=== PATIENT | male | born 1965 | race Caucasian/White ===

== ENCOUNTER 2019-08-29 | Outpatient (CLI) | payer MEDICARE, MEDICAID | END 2019-08-29 14:51 | disposition home or self-care (01) | DX: N18.3 Chronic kidney disease, stage 3 (moderate) (principal); N28.1 Cyst of kidney, acquired ==

== ENCOUNTER 2021-01-07 12:13 | Outpatient (CLI) | payer MEDICARE, MEDICAID ==
[2021-01-07 14:35] LABS: #Basophils 0.1 10x3/uL (0.0-0.2); #Eosinphils 0.3 10x3/uL (0.0-0.5); #Monocytes 0.8 10x3/uL (0.0-1.1); #Neutrophils 5.2 10x3/uL (1.5-8.4); %Basophils 1.2 % (0.0-2.0); %Eosinophils 2.9 % (0.0-6.0); %Lymphocytes 30.3 % (18.0-47.0); %Monocytes 8.2 % (0.0-10.0); Hemoglobin 14.8 g/dL (13.5-17.5); Mean Corpuscular HGB CONC 32.1 g/dL (32.0-36.0); Mean Corpuscular Volume 87.1 fl (81.2-95.1); Mean Platelet Volume 10.6 fl (7.4-10.4); Platelet Count 235 10x3/uL (150-450); RBC Distribution Width 15.9 % (11.5-14.5); Red Blood Cell (RBC) Count 5.29 10x6/uL (4.32-5.72); White Blood Cell (WBC) Count 9.2 10x3/uL (3.5-10.5)
[2021-01-07 14:36] LABS: Anion Gap 15 mmol/L (10-20); BUN (Urea Nitrogen) 14 mg/dL (8.4-25.7); Calc. Creatinine Clearance 0 mL/min (70-130); Calcium 9.6 mg/dL (7.8-10.44); Carbon Dioxide 23 mmol/L (22-29); Chloride 107 mmol/L (98-107); Glucose 68 mg/dL (70-105); Potassium 4.3 mmol/L (3.5-5.1); Sodium 141 mmol/L (136-145)
[2021-01-07 17:22] LABS: SARS-CoV-2 NAA Rapid Test DETECTED (NotDetected)
== END 2021-01-07 12:14 | disposition home or self-care (01) ==
LOC: LABBT 12:13
PROVIDERS: ATTEND Specialist
DX: Z01.818 Encounter for other preprocedural examination (principal); U07.1 COVID-19; K42.9 Umbilical hernia without obstruction or gangrene
CPT/HCPCS: 80048; 85025; U0002; 93005; 93010

== ENCOUNTER 2021-02-25 08:16 | Outpatient (CLI) | payer MEDICARE, MEDICAID ==
[2021-02-25 10:15] LABS: #Basophils 0.1 10x3/uL (0.0-0.2); #Eosinphils 0.3 10x3/uL (0.0-0.5); #Monocytes 0.8 10x3/uL (0.0-1.1); #Neutrophils 7.9 10x3/uL (1.5-8.4); %Basophils 0.9 % (0.0-2.0); %Eosinophils 2.2 % (0.0-6.0); %Monocytes 6.6 % (0.0-10.0); %Neutrophils 68.9 % (40.0-75.0); Hemoglobin 15.9 g/dL (13.5-17.5); Mean Corpuscular HGB CONC 32.3 g/dL (32.0-36.0); Mean Corpuscular Hemoglobin 27.4 pg (27.0-33.0); Mean Platelet Volume 10.6 fl (7.4-10.4); Platelet Count 254 10x3/uL (150-450); RBC Distribution Width 14.3 % (11.5-14.5); White Blood Cell (WBC) Count 11.5 10x3/uL (3.5-10.5)
[2021-02-25 10:31] LABS: Anion Gap 15 mmol/L (10-20); BUN (Urea Nitrogen) 21 mg/dL (8.4-25.7); Calc. Creatinine Clearance 0 mL/min (70-130); Calcium 9.8 mg/dL (7.8-10.44); Carbon Dioxide 19 mmol/L (22-29); Chloride 109 mmol/L (98-107); Glucose 107 mg/dL (70-105); Potassium 4.9 mmol/L (3.5-5.1); Sodium 138 mmol/L (136-145)
== END 2021-02-25 08:17 | disposition home or self-care (01) ==
LOC: LABBT 08:16
PROVIDERS: ATTEND Specialist
DX: Z01.812 Encounter for preprocedural laboratory examination (principal); K42.9 Umbilical hernia without obstruction or gangrene
CPT/HCPCS: 80048; 85025

== ENCOUNTER 2021-02-26 08:17 | Day surgery (SDC) | payer MEDICARE, MEDICAID ==
[2021-02-20 14:39] VITALS: BMI 32.1
[2021-02-26] MEDS ORDERED: Ketorolac Tromethamine 30 MG/ML VIAL ONE (08:40)
[2021-02-26] MEDS ORDERED: Acetaminophen 500 MG TAB ONE (08:40)
[2021-02-26] MEDS ORDERED: Bupivacaine 0.25% HCL 30 ML VIAL ONE (09:20)
[2021-02-26] MEDS ORDERED: Lidocaine 1% w/Epinephrine 1:100K 20 ML VIAL ONE (09:20)
[2021-02-26] MEDS ORDERED: Midazolam HCl 2 mg/2 ml Vial ONE (09:31)
[2021-02-26] MEDS ORDERED: Fentanyl 100 MCG/2 ML VIAL ONE ×4 (09:31→11:49)
[2021-02-26] MEDS ORDERED: Lidocaine 1% PF 5 ML VIAL ONE (09:35)
[2021-02-26] MEDS ORDERED: Ondansetron PF 4 MG/2 ML Vial ONE (09:35)
[2021-02-26] MEDS ORDERED: ePHEDrine 50 MG/ML VIAL ONE (09:35)
[2021-02-26] MEDS ORDERED: PROPOFOL 200 MG/20 ML VIAL ONE (09:35)
[2021-02-26] MEDS ORDERED: HYDROcodone/Acetaminophen 5/325 mg Tablet ONE (12:44)
== END 2021-02-26 14:00 | disposition home or self-care (01) ==
LOC: SDC 08:17
PROVIDERS: ATTEND Specialist
PROC: 0WUF0JZ Supplement Abdominal Wall with Synthetic Substitute, Open Approach (ICD-10-PCS; principal; 2021-02-26)
DX: K42.9 Umbilical hernia without obstruction or gangrene (principal); I10 Essential (primary) hypertension; F17.210 Nicotine dependence, cigarettes, uncomplicated; Z79.899 Other long term (current) drug therapy; Z88.8 Allergy status to other drugs, medicaments and biological substances
CPT/HCPCS: 49585; C1889; J0690; J1885; J2250; J2405; J2704; J3010; J3490; S0020

== ENCOUNTER 2022-03-19 08:34 | Inpatient (IN) | payer OTHER, MEDICAID ==
[2022-03-19 09:08] LABS: #Basophils 0.1 thou/uL (0.0-0.2); #Eosinphils 0.1 thou/uL (0.0-0.7); #Lymphocytes 2.3 thou/uL (1.20-3.40); #Monocytes 0.7 thou/uL (0.11-0.59); %Basophils 0.6 % (0.0-1.0); %Eosinophils 1.1 % (0.0-10.0); %Lymphocytes 18.9 % (21.0-51.0); %Monocytes 6.1 % (0.0-10.0); %Neutrophils 73.4 % (42.0-75.0); Hemoglobin 15.3 g/dL (14.0-18.0); Mean Corpuscular HGB CONC 31.9 g/dL (32.0-36.0); Mean Corpuscular Hemoglobin 27.9 pg (27.0-31.0); Mean Corpuscular Volume 87.5 fl (78.0-98.0); Mean Platelet Volume 8.5 fL (7.4-10.4); Platelet Count 206 10x3/uL (130-400); RBC Distribution Width 13.8 % (11.5-14.5); Red Blood Cell (RBC) Count 5.48 mill/uL (4.70-6.10); White Blood Cell (WBC) Count 12.2 10x3/uL (4.8-10.8)
[2022-03-19 09:29] LABS: ALT (SGPT) 22 U/L (8-55); AST (SGOT) 26 U/L (5-34); Albumin 4.2 g/dL (3.5-5.0); Alkaline Phosphatase 73 U/L (40-110); Anion Gap 14 mmol/L (10-20); BUN (Urea Nitrogen) 5 mg/dL (8.4-25.7); Bilirubin, Total 0.5 mg/dL (0.2-1.2); Calc. Creatinine Clearance 0 mL/min (70-130); Calcium 9.9 mg/dL (7.8-10.44); Carbon Dioxide 28 mmol/L (22-29); Chloride 99 mmol/L (98-107); Estimated GFR 53; Globulin 3.9 g/dL (2.4-3.5); Glucose 132 mg/dL (70-105); Lipase 43 U/L (8-78); Potassium 3.3 mmol/L (3.5-5.1); Protein, Total 8.1 g/dL (6.0-8.3); Sodium 138 mmol/L (136-145)
[2022-03-19] MEDS ORDERED: Nitroglycerin 0.4 MG TAB 1 EACH ONE ×2 (09:39→10:00)
[2022-03-19] MEDS ORDERED: Aspirin Chewable 81 MG TAB ONE (09:39)
[2022-03-19 11:03] LABS: SARS-CoV-2 NAA Rapid Test Not Detected (NotDetected)
[2022-03-19 12:19] LABS: Troponin I Less than 0.010 ng/mL (< 0.028)
[2022-03-19] MEDS ORDERED: Morphine 4 MG/ML VIAL SLOW IVP SCH (12:30)
[2022-03-19] MEDS ORDERED: Acetaminophen 325 MG TAB PO PRN ×2 (12:46→17:12)
[2022-03-19] MEDS ORDERED: Ondansetron ODT 4 MG TAB PO PRN (12:46)
[2022-03-19] MEDS ORDERED: Ondansetron PF 4 MG/2 ML Vial IVP PRN (12:46)
[2022-03-19] MEDS ORDERED: NIFEdipine XL 30 MG TAB PO SCH (13:45)
[2022-03-19] MEDS ORDERED: Sodium Bicarbonate 2.5 MEQ/5 ML VIAL ONE (13:53)
[2022-03-19] MEDS ORDERED: Morphine 4 MG/ML VIAL ONE (13:53)
[2022-03-19 13:58] LABS: Hemoglobin A1c 5.4 % (4.0-6.0)
[2022-03-19 14:15] LABS: Cardiac Risk 5.6 (Less than 4.5)
[2022-03-19 16:05] LABS: Troponin I Less than 0.010 ng/mL (< 0.028)
[2022-03-19] MEDS ORDERED: HYDROcodone/Acetaminophen 5/325 mg Tablet PO PRN (16:17)
[2022-03-19] MEDS ORDERED: Potassium Chloride 20 MEQ TAB PO SCH (17:15)
[2022-03-19] MEDS ORDERED: Potassium Chloride 20 MEQ TAB ONE (18:15)
[2022-03-19] MEDS: Carvedilol 25 MG TAB PO SCH (18:17)
[2022-03-19 19:47] VITALS: BMI 30.2
[2022-03-19] MEDS ORDERED: Tamsulosin HCl 0.4 MG CAP PO SCH (21:00)
[2022-03-19] MEDS ORDERED: Atorvastatin Calcium 40 MG TAB PO SCH (21:00)
[2022-03-20 05:13] LABS: #Basophils 0.1 thou/uL (0.0-0.2); #Eosinphils 0.3 thou/uL (0.0-0.7); #Lymphocytes 2.6 thou/uL (1.20-3.40); #Monocytes 0.6 thou/uL (0.11-0.59); #Neutrophils 5.6 thou/uL (1.40-6.50); %Basophils 0.7 % (0.0-1.0); %Eosinophils 3.2 % (0.0-10.0); %Lymphocytes 28.4 % (21.0-51.0); %Monocytes 6.9 % (0.0-10.0); %Neutrophils 60.8 % (42.0-75.0); Hemoglobin 14.6 g/dL (14.0-18.0); Mean Corpuscular HGB CONC 32.4 g/dL (32.0-36.0); Mean Corpuscular Hemoglobin 28.6 pg (27.0-31.0); Mean Corpuscular Volume 88.3 fl (78.0-98.0); Mean Platelet Volume 8.3 fL (7.4-10.4); Platelet Count 184 10x3/uL (130-400); RBC Distribution Width 13.8 % (11.5-14.5); Red Blood Cell (RBC) Count 5.11 mill/uL (4.70-6.10); White Blood Cell (WBC) Count 9.2 10x3/uL (4.8-10.8)
[2022-03-20 05:30] LABS: ALT (SGPT) 23 U/L (8-55); AST (SGOT) 28 U/L (5-34); Albumin 3.6 g/dL (3.5-5.0); Alkaline Phosphatase 68 U/L (40-110); Anion Gap 13 mmol/L (10-20); BUN (Urea Nitrogen) 6 mg/dL (8.4-25.7); Bilirubin, Total 0.7 mg/dL (0.2-1.2); Calc. Creatinine Clearance 75 mL/min (70-130); Calcium 8.9 mg/dL (7.8-10.44); Carbon Dioxide 25 mmol/L (22-29); Chloride 103 mmol/L (98-107); Estimated GFR 61; Globulin 3.5 g/dL (2.4-3.5); Glucose 108 mg/dL (70-105); Potassium 3.4 mmol/L (3.5-5.1); Protein, Total 7.1 g/dL (6.0-8.3); Sodium 138 mmol/L (136-145)
[2022-03-20] MEDS ORDERED: metFORMIN 500 MG TAB PO SCH (08:00)
[2022-03-20] MEDS ORDERED: Tamsulosin HCl 0.4 MG CAP PO SCH (09:00)
[2022-03-20] MEDS ORDERED: NIFEdipine XL 30 MG TAB PO SCH (09:00)
[2022-03-20] MEDS ORDERED: Escitalopram Oxalate 10 mg Tablet PO SCH (09:00)
[2022-03-20] MEDS ORDERED: Loratadine 10 MG TAB PO SCH (09:00)
[2022-03-20] MEDS ORDERED: Potassium Chloride 20 MEQ TAB PO SCH (11:45)
[2022-03-20] MEDS ORDERED: ADENOSINE 60 MG/20 ML VIAL ONE (12:07)
[2022-03-20] MEDS: Carvedilol 25 MG TAB PO SCH (13:31)
[2022-03-20 13:34] VITALS: BP 123/73; TEMP 97.3
== END 2022-03-20 14:13 | disposition home or self-care (01) | DRG 445 ==
LOC: ERS 08:34 → ERHOLD 11:15 → 2NO 19:31
PROVIDERS: ADMIT Family Medicine; ATTEND Family Medicine
DX: K80.00 Calculus of gallbladder with acute cholecystitis without obstruction (principal); N17.9 Acute kidney failure, unspecified; I16.0 Hypertensive urgency; R07.89 Other chest pain; Z20.822 Contact with and (suspected) exposure to COVID-19; N18.31 Chronic kidney disease, stage 3a; I12.9 Hypertensive chronic kidney disease with stage 1 through stage 4 chronic kidney disease, or unspecified chronic kidney disease; I45.10 Unspecified right bundle-branch block; E87.6 Hypokalemia; F41.1 Generalized anxiety disorder; F32.9 Major depressive disorder, single episode, unspecified; F17.210 Nicotine dependence, cigarettes, uncomplicated; Z60.2 Problems related to living alone; N20.0 Calculus of kidney; Z79.899 Other long term (current) drug therapy; Z79.84 Long term (current) use of oral hypoglycemic drugs; Z88.8 Allergy status to other drugs, medicaments and biological substances; Z80.0 Family history of malignant neoplasm of digestive organs; Z82.3 Family history of stroke; Z82.49 Family history of ischemic heart disease and other diseases of the circulatory system
CPT/HCPCS: 36415; 71045; 74176; 76705; 78452; 80053; 80061; 83036; 83690; 83880; 84443; 84484; 85025; 93005; 93017; 93306; A9500; J2270; U0002

== ENCOUNTER 2022-10-05 12:17 | Observation (INO) | payer OTHER, MEDICAID ==
[~2022-10-05 12:17] MED LIST: Iopamidol-370 76% 500 ML MDV (1 ML CHARGE) ONE
[2022-10-05] MEDS ORDERED: Morphine 4 MG/ML VIAL ONE (12:55)
[2022-10-05] MEDS ORDERED: Ondansetron PF 4 MG/2 ML Vial ONE (12:55)
[2022-10-05 13:04] LABS: #Basophils 0.1 thou/uL (0.0-0.2); #Eosinphils 0.1 thou/uL (0.0-0.7); #Monocytes 0.5 thou/uL (0.11-0.59); #Neutrophils 9.8 thou/uL (1.40-6.50); %Basophils 0.5 % (0.0-1.0); %Eosinophils 0.7 % (0.0-10.0); %Lymphocytes 17.8 % (21.0-51.0); %Monocytes 4.2 % (0.0-10.0); %Neutrophils 76.3 % (42.0-75.0); Hemoglobin 14.3 g/dL (14.0-18.0); Mean Corpuscular HGB CONC 32.3 g/dL (32.0-36.0); Mean Corpuscular Volume 86.7 fl (78.0-98.0); Mean Platelet Volume 10.5 fL (7.4-10.4); Platelet Count 199 10x3/uL (130-400); RBC Distribution Width 15.7 % (11.5-14.5); Red Blood Cell (RBC) Count 5.11 mill/uL (4.70-6.10); White Blood Cell (WBC) Count 12.9 10x3/uL (4.8-10.8)
[2022-10-05 13:23] LABS: ALT (SGPT) 27 U/L (8-55); AST (SGOT) 30 U/L (5-34); Albumin 3.8 g/dL (3.5-5.0); Alkaline Phosphatase 71 U/L (40-110); Anion Gap 15 mmol/L (10-20); BUN (Urea Nitrogen) 12 mg/dL (8.4-25.7); Bilirubin, Total 0.4 mg/dL (0.2-1.2); Calc. Creatinine Clearance 0 mL/min (70-130); Calcium 9.3 mg/dL (7.8-10.44); Carbon Dioxide 21 mmol/L (22-29); Chloride 102 mmol/L (98-107); Estimated GFR 48; Globulin 3.2 g/dL (2.4-3.5); Glucose 145 mg/dL (70-105); Lipase 44 U/L (8-78); Potassium 3.9 mmol/L (3.5-5.1); Sodium 134 mmol/L (136-145)
[2022-10-05] MEDS ORDERED: Ondansetron ODT 4 MG TAB ONE (16:26)
[2022-10-05] MEDS ORDERED: fentaNYL 50 mcg/mL 1 mL Vial ONE (16:26)
[2022-10-05] MEDS ORDERED: Ondansetron ODT 4 MG TAB PO PRN (17:01)
[2022-10-05] MEDS ORDERED: Acetaminophen 325 MG TAB PO PRN (17:01)
[2022-10-05 17:53] LABS: Troponin I Less than 0.010 ng/mL (< 0.028)
[2022-10-05 19:06] VITALS: BMI 30.9
[2022-10-05] MEDS ORDERED: Aluminum & Magnesium Hydroxide 30 ML, Donnatal Elixir 32.4 MG PO SCH (19:30)
[2022-10-05] MEDS: Carvedilol 25 MG TAB PO SCH (19:57)
[2022-10-05 20:51] LABS: Troponin I Less than 0.010 ng/mL (< 0.028)
[2022-10-05] MEDS ORDERED: Diclofenac 1% 100 GM GEL TP SCH (22:00)
[2022-10-06 05:43] LABS: #Basophils 0.1 thou/uL (0.0-0.2); #Eosinphils 0.3 thou/uL (0.0-0.7); #Monocytes 0.8 thou/uL (0.11-0.59); #Neutrophils 6.3 thou/uL (1.40-6.50); %Basophils 0.7 % (0.0-1.0); %Eosinophils 2.8 % (0.0-10.0); %Lymphocytes 28.4 % (21.0-51.0); %Monocytes 7.2 % (0.0-10.0); %Neutrophils 60.4 % (42.0-75.0); Hemoglobin 14.3 g/dL (14.0-18.0); Mean Corpuscular HGB CONC 31.4 g/dL (32.0-36.0); Mean Corpuscular Hemoglobin 27.7 pg (27.0-31.0); Mean Platelet Volume 10.3 fL (7.4-10.4); Platelet Count 183 10x3/uL (130-400); RBC Distribution Width 16.1 % (11.5-14.5); Red Blood Cell (RBC) Count 5.17 mill/uL (4.70-6.10); White Blood Cell (WBC) Count 10.4 10x3/uL (4.8-10.8)
[2022-10-06 06:11] LABS: Troponin I Less than 0.010 ng/mL (< 0.028)
[2022-10-06 06:16] LABS: Anion Gap 14 mmol/L (10-20); BUN (Urea Nitrogen) 11 mg/dL (8.4-25.7); Calc. Creatinine Clearance 66 mL/min (70-130); Carbon Dioxide 25 mmol/L (22-29); Chloride 106 mmol/L (98-107); Estimated GFR 52; Potassium 4.5 mmol/L (3.5-5.1); Sodium 140 mmol/L (136-145)
[2022-10-06 06:17] LABS: ALT (SGPT) 23 U/L (8-55); AST (SGOT) 24 U/L (5-34); Albumin 3.6 g/dL (3.5-5.0); Alkaline Phosphatase 67 U/L (40-110); Bilirubin, Total 0.4 mg/dL (0.2-1.2); Calcium 9.5 mg/dL (7.8-10.44); Globulin 3.4 g/dL (2.4-3.5); Glucose 97 mg/dL (70-105)
[2022-10-06] MEDS ORDERED: Escitalopram Oxalate 10 mg Tablet PO SCH (09:00)
[2022-10-06] MEDS ORDERED: Diclofenac 1% 100 GM GEL TP SCH (09:00)
[2022-10-06] MEDS ORDERED: Tamsulosin HCl 0.4 MG CAP PO SCH (09:00)
[2022-10-06] MEDS: Carvedilol 25 MG TAB PO SCH (09:36)
[2022-10-06 12:25] VITALS: BP 142/76; TEMP 97.6
== END 2022-10-06 13:44 | disposition home or self-care (01) ==
LOC: ERS 12:17 → 2SW 16:02
PROVIDERS: ADMIT Student in an Organized Health Care Education/Training Program; ATTEND Student in an Organized Health Care Education/Training Program
DX: R07.89 Other chest pain (principal); I12.9 Hypertensive chronic kidney disease with stage 1 through stage 4 chronic kidney disease, or unspecified chronic kidney disease; N18.31 Chronic kidney disease, stage 3a; N40.0 Benign prostatic hyperplasia without lower urinary tract symptoms; E78.5 Hyperlipidemia, unspecified; F17.210 Nicotine dependence, cigarettes, uncomplicated; Z79.899 Other long term (current) drug therapy; Z88.8 Allergy status to other drugs, medicaments and biological substances
CPT/HCPCS: 71045; 71275; 80053 ×2; 83690; 83880; 84484 ×3; 85025 ×2; 85379; 87338; 93005; 96372; 96374; 96375; 99285; G0378 ×3; J3010; 36415; 82274; J1650; J2270; J2405; Q0162; Q9967

== ENCOUNTER 2022-11-13 10:16 | Observation (INO) | payer OTHER, MEDICAID ==
[2022-11-13] MEDS ORDERED: Iopamidol-370 76% 500 ML MDV (1 ML CHARGE) ONE (10:38)
[2022-11-13] MEDS ORDERED: Aspirin 325 MG TAB ONE (10:46)
[2022-11-13] MEDS ORDERED: hydrALAZINE 20 MG/ML VIAL ONE (10:46)
[2022-11-13] MEDS ORDERED: Nitroglycerin 2% Ointment 1 INCH/1 GM Packet ONE (10:46)
[2022-11-13 11:08] LABS: #Basophils 0.1 thou/uL (0.0-0.2); #Monocytes 0.9 thou/uL (0.11-0.59); #Neutrophils 12.1 thou/uL (1.40-6.50); %Basophils 0.4 % (0.0-1.0); %Eosinophils 0.2 % (0.0-10.0); %Lymphocytes 15.9 % (21.0-51.0); %Monocytes 5.6 % (0.0-10.0); %Neutrophils 77.6 % (42.0-75.0); Hematocrit 47.1 % (42.0-52.0); Hemoglobin 15.3 g/dL (14.0-18.0); Mean Corpuscular HGB CONC 32.5 g/dL (32.0-36.0); Mean Corpuscular Hemoglobin 27.5 pg (27.0-31.0); Mean Corpuscular Volume 84.7 fl (78.0-98.0); Mean Platelet Volume 10.6 fL (7.4-10.4); Platelet Count 228 10x3/uL (130-400); RBC Distribution Width 15.3 % (11.5-14.5); Red Blood Cell (RBC) Count 5.56 mill/uL (4.70-6.10); White Blood Cell (WBC) Count 15.6 10x3/uL (4.8-10.8)
[2022-11-13] MEDS ORDERED: Aspirin Chewable 81 MG TAB ONE (11:21)
[2022-11-13 11:32] LABS: ALT (SGPT) 22 U/L (8-55); AST (SGOT) 20 U/L (5-34); Alkaline Phosphatase 72 U/L (40-110); Anion Gap 14 mmol/L (10-20); BUN (Urea Nitrogen) 16 mg/dL (8.4-25.7); Bilirubin, Total 0.4 mg/dL (0.2-1.2); Calc. Creatinine Clearance 0 mL/min (70-130); Calcium 9.2 mg/dL (7.8-10.44); Carbon Dioxide 22 mmol/L (22-29); Chloride 101 mmol/L (98-107); Estimated GFR 39; Globulin 3.8 g/dL (2.4-3.5); Glucose 175 mg/dL (70-105); Potassium 3.4 mmol/L (3.5-5.1); Protein, Total 7.8 g/dL (6.0-8.3); Sodium 134 mmol/L (136-145)
[2022-11-13 11:34] LABS: Troponin I Less than 0.010 ng/mL (< 0.028)
[2022-11-13] MEDS ORDERED: Ketorolac Tromethamine 30 MG/ML VIAL ONE (12:26)
[2022-11-13] MEDS ORDERED: Dextrose 5% in Water 1,000 ML IV PRN (12:57)
[2022-11-13] MEDS ORDERED: Dextrose 50% Abboject 50 ML SYRINGE SLOW IVP PRN (12:57)
[2022-11-13] MEDS ORDERED: Glucagon 1 MG/ML KIT IM PRN (12:57)
[2022-11-13] MEDS ORDERED: HumaLOG 300 UNITS/3 ML VIAL SC PRN (13:00)
[2022-11-13] MEDS ORDERED: hydrALAZINE 20 MG/ML VIAL SLOW IVP PRN (13:53)
[2022-11-13] MEDS: Heparin 5,000 UNITS/ML VIAL SC SCH ×2 (14:05→20:08)
[2022-11-13 14:29] LABS: Troponin I Less than 0.010 ng/mL (< 0.028)
[2022-11-13 15:10] LABS: Hemoglobin A1c 5.7 % (4.0-6.0)
[2022-11-13 15:25] LABS: Cardiac Risk 6.2 (Less than 4.5)
[2022-11-13 17:27] VITALS: BMI 31.1
[2022-11-13] MEDS: Acetaminophen 500 MG TAB PO SCH (17:52)
[2022-11-13 18:34] LABS: Troponin I Less than 0.010 ng/mL (< 0.028)
[2022-11-13] MEDS: Carvedilol 25 MG TAB PO SCH (20:08)
[2022-11-13] MEDS ORDERED: Latanoprost 0.005% Ophth Soln 2.5 ml Bottle EA EYE SCH (21:00)
[2022-11-13] MEDS ORDERED: Atorvastatin Calcium 40 MG TAB PO SCH (21:00)
[2022-11-14 04:54] LABS: #Basophils 0.1 thou/uL (0.0-0.2); #Eosinphils 0.3 thou/uL (0.0-0.7); #Neutrophils 6.2 thou/uL (1.40-6.50); %Basophils 0.5 % (0.0-1.0); %Eosinophils 2.8 % (0.0-10.0); %Lymphocytes 26.1 % (21.0-51.0); %Monocytes 9.5 % (0.0-10.0); %Neutrophils 60.7 % (42.0-75.0); Hematocrit 42.2 % (42.0-52.0); Hemoglobin 13.7 g/dL (14.0-18.0); Mean Corpuscular HGB CONC 32.5 g/dL (32.0-36.0); Mean Corpuscular Volume 86.3 fl (78.0-98.0); Mean Platelet Volume 10.5 fL (7.4-10.4); Platelet Count 186 10x3/uL (130-400); RBC Distribution Width 15.3 % (11.5-14.5); Red Blood Cell (RBC) Count 4.89 mill/uL (4.70-6.10); White Blood Cell (WBC) Count 10.2 10x3/uL (4.8-10.8)
[2022-11-14] MEDS: Acetaminophen 500 MG TAB PO SCH (05:13)
[2022-11-14 05:19] LABS: ALT (SGPT) 15 U/L (8-55); AST (SGOT) 17 U/L (5-34); Albumin 3.3 g/dL (3.5-5.0); Alkaline Phosphatase 59 U/L (40-110); Anion Gap 13 mmol/L (10-20); BUN (Urea Nitrogen) 18 mg/dL (8.4-25.7); Bilirubin, Total 0.4 mg/dL (0.2-1.2); Calc. Creatinine Clearance 58 mL/min (70-130); Calcium 8.4 mg/dL (7.8-10.44); Carbon Dioxide 24 mmol/L (22-29); Chloride 101 mmol/L (98-107); Estimated GFR 44; Globulin 3.3 g/dL (2.4-3.5); Glucose 137 mg/dL (70-105); Potassium 3.4 mmol/L (3.5-5.1); Protein, Total 6.6 g/dL (6.0-8.3); Sodium 135 mmol/L (136-145)
[2022-11-14] MEDS: Carvedilol 25 MG TAB PO SCH (08:45)
[2022-11-14] MEDS: Heparin 5,000 UNITS/ML VIAL SC SCH (08:46)
[2022-11-14] MEDS ORDERED: Tamsulosin HCl 0.4 MG CAP PO SCH (09:00)
[2022-11-14] MEDS ORDERED: Fish Oil 1,000 MG CAP PO SCH (09:00)
[2022-11-14] MEDS ORDERED: Escitalopram Oxalate 10 mg Tablet PO SCH (09:00)
[2022-11-14 11:41] VITALS: BP 137/78; TEMP 98.6
== END 2022-11-14 12:20 | disposition home or self-care (01) ==
LOC: ERS 10:16 → ERHOLD 12:45 → 2SW 16:26
PROVIDERS: ADMIT Student in an Organized Health Care Education/Training Program; ATTEND Student in an Organized Health Care Education/Training Program
DX: I20.9 Angina pectoris, unspecified (principal); R07.2 Precordial pain; N40.0 Benign prostatic hyperplasia without lower urinary tract symptoms; N18.30 Chronic kidney disease, stage 3 unspecified; I12.9 Hypertensive chronic kidney disease with stage 1 through stage 4 chronic kidney disease, or unspecified chronic kidney disease; E78.5 Hyperlipidemia, unspecified; E11.22 Type 2 diabetes mellitus with diabetic chronic kidney disease; F32.A Depression, unspecified; Z98.890 Other specified postprocedural states; Z98.49 Cataract extraction status, unspecified eye; F17.210 Nicotine dependence, cigarettes, uncomplicated; Z88.8 Allergy status to other drugs, medicaments and biological substances; Z79.899 Other long term (current) drug therapy; Z20.822 Contact with and (suspected) exposure to COVID-19
CPT/HCPCS: 71045; 71275; 80053; 80061; 82962 ×2; 83036; 83880; 84439; 84484 ×2; 85025; 85379; 87635; 93005; 96372 ×3; 96374; 96375; 99285; G0378 ×3; J0360; 36415; 36416; 84443; J1644; J1885; Q9967

== ENCOUNTER 2023-02-07 08:41 | Emergency (ER) | payer OTHER, MEDICAID ==
[2023-02-07 09:21] LABS: #Basophils 0.1 thou/uL (0.0-0.2); #Monocytes 0.8 thou/uL (0.11-0.59); #Neutrophils 10.6 thou/uL (1.40-6.50); %Basophils 0.4 % (0.0-1.0); %Eosinophils 0.2 % (0.0-10.0); %Lymphocytes 10.9 % (21.0-51.0); %Monocytes 6.5 % (0.0-10.0); %Neutrophils 81.2 % (42.0-75.0); Hematocrit 42.3 % (42.0-52.0); Hemoglobin 13.5 g/dL (14.0-18.0); Mean Corpuscular HGB CONC 31.9 g/dL (32.0-36.0); Mean Corpuscular Hemoglobin 26.1 pg (27.0-31.0); Mean Corpuscular Volume 81.8 fl (78.0-98.0); Mean Platelet Volume 10.3 fL (7.4-10.4); Platelet Count 260 10x3/uL (130-400); Red Blood Cell (RBC) Count 5.17 mill/uL (4.70-6.10)
[2023-02-07] MEDS ORDERED: Ketorolac Tromethamine 30 MG/ML VIAL ONE (09:38)
[2023-02-07] MEDS ORDERED: Aspirin Chewable 81 MG TAB ONE (09:38)
[2023-02-07 09:40] LABS: ALT (SGPT) 8 U/L (8-55); AST (SGOT) 14 U/L (5-34); Albumin 4.1 g/dL (3.5-5.0); Alkaline Phosphatase 89 U/L (40-110); Anion Gap 15 mmol/L (10-20); BUN (Urea Nitrogen) 15 mg/dL (8.4-25.7); Bilirubin, Total 0.7 mg/dL (0.2-1.2); Calc. Creatinine Clearance 0 mL/min (70-130); Calcium 9.6 mg/dL (7.8-10.44); Carbon Dioxide 20 mmol/L (22-29); Chloride 103 mmol/L (98-107); Estimated GFR 45; Globulin 4.1 g/dL (2.4-3.5); Glucose 195 mg/dL (70-105); Lipase 30 U/L (8-78); Potassium 4.5 mmol/L (3.5-5.1); Protein, Total 8.2 g/dL (6.0-8.3); Sodium 133 mmol/L (136-145)
[2023-02-07 09:41] LABS: Troponin I Less than 0.010 ng/mL (< 0.028)
[2023-02-07 10:35] LABS: SARS-CoV-2 NAA Rapid Test Not Detected (NotDetected)
[2023-02-07] MEDS ORDERED: Morphine 4 MG/ML VIAL ONE (11:13)
[2023-02-07] MEDS ORDERED: Ondansetron PF 4 MG/2 ML Vial ONE (11:13)
[2023-02-07] MEDS ORDERED: Iopamidol-370 76% 500 ML MDV (1 ML CHARGE) ONE (14:03)
== END 2023-02-07 14:10 | disposition home or self-care (01) ==
LOC: ERS 08:41
DX: K80.50 Calculus of bile duct without cholangitis or cholecystitis without obstruction (principal); I10 Essential (primary) hypertension; F17.210 Nicotine dependence, cigarettes, uncomplicated; Z20.822 Contact with and (suspected) exposure to COVID-19
CPT/HCPCS: 0240U; 71045; 71275; 76705; 80053; 83690; 84484; 85025; 93005; 36415; 96361; 96374; 96375; J1885; J2270; J2405; Q9967

== ENCOUNTER 2024-01-07 10:15 | Outpatient (CLI) | payer OTHER, MEDICAID | END 2024-01-07 10:16 | disposition home or self-care (01) | LOC: BICCT 10:15 | PROVIDERS: ATTEND Family Medicine | DX: Z12.2 Encounter for screening for malignant neoplasm of respiratory organs (principal); F17.210 Nicotine dependence, cigarettes, uncomplicated | CPT/HCPCS: 71271 ==

== ENCOUNTER 2024-05-20 11:47 | Outpatient (CLI) | payer OTHER, MEDICAID | END 2024-05-20 11:48 | disposition home or self-care (01) | LOC: CT 11:47 | PROVIDERS: ATTEND Student in an Organized Health Care Education/Training Program | DX: M17.11 Unilateral primary osteoarthritis, right knee (principal) ==

== ENCOUNTER 2024-05-23 11:49 | Outpatient (CLI) | payer OTHER, MEDICAID | END 2024-05-23 11:50 | LOC: LABBT 11:49 | PROVIDERS: ATTEND Student in an Organized Health Care Education/Training Program | DX: Z01.810 Encounter for preprocedural cardiovascular examination (principal); M17.11 Unilateral primary osteoarthritis, right knee | CPT/HCPCS: 93005; 93010 ==

== ENCOUNTER 2024-11-02 07:33 | Observation (INO) | payer OTHER, MEDICAID ==
[2024-11-02] MEDS ORDERED: Tranexamic Acid 1,000 MG/10 ML VIAL ONE (08:22)
[2024-11-02] MEDS ORDERED: Vancomycin 1 GM/200 ML (FROZEN) BAG ONE (08:22)
[2024-11-02] MEDS ORDERED: Acetaminophen 500 MG TAB ONE (08:22)
[2024-11-02] MEDS ORDERED: Ropivacaine 0.5% HCl/PF (150 MG/30 ML VIAL) ONE (08:27)
[2024-11-02] MEDS ORDERED: HYDROcodone/Acetaminophen 10/325 mg Tablet PO PRN ×2 (09:00)
[2024-11-02] MEDS ORDERED: Ropivacaine 0.2% 550 ML 550 ML NERVE BLCK SCH (09:00)
[2024-11-02] MEDS ORDERED: Bupivacaine 0.25% HCL 30 ML VIAL ONE (09:15)
[2024-11-02] MEDS ORDERED: PROPOFOL 40 ML ONE (09:21)
[2024-11-02] MEDS ORDERED: CEFAZOLIN 2 GM VIAL ONE (09:34)
[2024-11-02] MEDS ORDERED: Lidocaine 1% PF 5 ML VIAL ONE (10:12)
[2024-11-02] MEDS ORDERED: Ondansetron PF 4 MG/2 ML Vial ONE (10:13)
[2024-11-02] MEDS ORDERED: PHENYLEPHRINE-NS 100 MCG/ML 10 ML SYRINGE ONE (10:21)
[2024-11-02] MEDS ORDERED: fentaNYL PF 100 MCG/2 ML SYRINGE ONE ×2 (12:28→13:03)
[2024-11-02] MEDS ORDERED: HYDROmorphone 0.5 MG/0.5 ML SYRINGE ONE ×2 (12:29→13:03)
[2024-11-02] MEDS ORDERED: Ondansetron PF 4 MG/2 ML Vial IVP PRN (13:30)
[2024-11-02] MEDS ORDERED: diphenhydrAMINE 25 MG CAP PO PRN (13:30)
[2024-11-02] MEDS ORDERED: oxyCODONE 5 MG TAB PO PRN (15:27)
[2024-11-02] MEDS: oxyCODONE 5 MG TAB PO PRN (16:00)
[2024-11-02] MEDS: Acetaminophen 500 MG TAB PO SCH (17:04)
[2024-11-02] MEDS: Ferrous Gluconate 324 MG TAB PO SCH (21:34)
[2024-11-02] MEDS: Senokot S 8.6-50 MG TAB PO SCH (21:35)
[2024-11-02 21:42] VITALS: BMI 30.8
[2024-11-03 04:37] LABS: Hematocrit 31.6 % (42.0-52.0); Hemoglobin 9.9 g/dL (14.0-18.0); Mean Corpuscular Hemoglobin 26.9 pg (27.0-31.0); Mean Corpuscular Volume 85.9 fL (78.0-98.0); Platelet Count 192 10x3/uL (130-400); Red Blood Cell (RBC) Count 3.68 mill/uL (4.70-6.10); White Blood Cell (WBC) Count 16.01 10x3/uL (4.8-10.8)
[2024-11-03 04:40] LABS: Anion Gap 12 mmol/L (10-20); BUN (Urea Nitrogen) 15 mg/dL (8.4-25.7); Calc. Creatinine Clearance 49 mL/min (70-130); Calcium 7.7 mg/dL (7.8-10.44); Carbon Dioxide 23 mmol/L (22-29); Chloride 105 mmol/L (98-107); Glucose 170 mg/dL (70-105); Potassium 4.0 mmol/L (3.5-5.1); Sodium 136 mmol/L (136-145)
[2024-11-03] MEDS: Ondansetron PF 4 MG/2 ML Vial IVP PRN (05:33)
[2024-11-03] MEDS: Methocarbamol 500 MG TAB PO PRN (06:27)
[2024-11-03] MEDS: Multivitamin W/ Minerals 1 TAB PO SCH (08:53)
[2024-11-03] MEDS: Aspirin 81 mg Enteric Coated Tablet PO SCH (08:55)
[2024-11-03 11:13] VITALS: BP 131/78; TEMP 97.3
== END 2024-11-03 17:15 | disposition home or self-care (01) ==
LOC: SDC 07:33 → SURG A 14:02
PROVIDERS: ADMIT Student in an Organized Health Care Education/Training Program; ATTEND Student in an Organized Health Care Education/Training Program
PROC: 0SRD0JZ Replacement of Left Knee Joint with Synthetic Substitute, Open Approach (ICD-10-PCS; principal; 2024-11-02)
PROC: 3E0T3BZ Introduction of Anesthetic Agent into Peripheral Nerves and Plexi, Percutaneous Approach (ICD-10-PCS; 2024-11-02)
DX: M17.12 Unilateral primary osteoarthritis, left knee (principal); I10 Essential (primary) hypertension; F17.200 Nicotine dependence, unspecified, uncomplicated; Z96.651 Presence of right artificial knee joint; Z90.49 Acquired absence of other specified parts of digestive tract; Z98.890 Other specified postprocedural states; Z88.8 Allergy status to other drugs, medicaments and biological substances; Z79.899 Other long term (current) drug therapy
CPT/HCPCS: 0055T; 27447; 64448; 36415; 80048; 85027; A4306; C1713; C1776; C1889; J0169; J0665; J1100; J1171; J2250; J2405; J2704; J2795; J3010; J3373